=== PATIENT | male | born 1960 | race Caucasian/White ===

== ENCOUNTER 2016-11-27 13:23 | Emergency (ER) | payer OTHER ==
--- NOTE | 2016-11-27 14:22 | UC ---
Dizzy HPI HPI Summary: pt presents with c/o of lightheadedness, dizziness X 1-2 days. pt is a type 2 diabetic who uses insulin. pt reports finger stick last night was in the 50's prior to bed and he adjusted dose of insulin and ate some food. BG improved. Pt also reports that he has had the "stomach bug" for the past 5 days. with frequent loose stools, abdominal pain, flatus, generalized malaise. Additionally, reports that he think he may have food poisoning. Pt ate a restaurant on 11/22/16 with a firend and friend also reported sudden onset of diarrhea, abdominal pain and flatus. However, pt states that friend has improved in terms of loose stools. Pt reports that dizziness and generalized malaise have worsened today and that he can't "seem to get my numbers up" for fingersticks. - History Of Current Complaint Chief Complaint: UCGeneralIllness Stated Complaint: BLOOD SUGAR LOW Time Seen by Provider: 11/27/16 13:35 Hx Obtained From: Patient Onset/Duration: Gradual Onset, Lasting Days Timing: Constant Severity Initially: Mild Severity Currently: Moderate Character: Lightheaded, Dizzy Aggravating Factor(s): Position Change Alleviating Factor(s): Nothing Associated Signs And Symptoms: Positive: Decreased Oral Intake - Risk Factors Cardiac Risk Factors: Diabetes - Allergies/Home Medications Allergies/Adverse Reactions: Allergies Allergy/AdvReac Type Severity Reaction Status Date / Time No Known Allergies Allergy Verified 11/27/16 13:26 Home Medications: Home Medications Desvenlafaxine(NF) [Pristiq(NF)] 1 tab PO QAM 11/27/16 [History Confirmed ] Fenofibrate(NF) [Tricor(NF)] 1 tab PO QPM 11/27/16 [History Confirmed 11/27/16] Gabapentin TAB(NF) [Neurontin 600 mg TAB(NF)] 1 tab PO BID 11/27/16 [History Confirmed 11/27/16] Glimepiride (NF) 2 tab PO BID 11/27/16 [History Confirmed 11/27/16] Insulin GLARGINE(*) [Lantus(*)] 20 units IM QPM 11/27/16 [History Confirmed ] LORazepam TAB(*) [Ativan TAB(*)] 1 tab PO TID 11/27/16 [History Confirmed ] Mirtazapine 1 tab PO QPM 11/27/16 [History Confirmed 11/27/16] Ranitidine TAB (NF) [Zantac TAB (NF)] 2 tab PO QPM 11/27/16 [History Confirmed 11/27/16] metFORMIN* [Glucophage*] 1 tab PO BID 11/27/16 [History Confirmed 11/27/16] PMH/Surg Hx/FS Hx/Imm Hx - Additional Past Medical History Additional PMH: Pt has generalized anxiety and depression. has implated vagus nerve stimulator for depression . States that is not currently "active" Previously Healthy: No - see PMH Endocrine History Of: Reports: Diabetes Denies: Thyroid Disease Cardiovascular History Of: Denies: Cardiac Disorders, Hypertension Respiratory History Of: Denies: COPD, Asthma GI/ History Of: Denies: Ulcer Psychological History Of: Reports: Anxiety, Depression - Surgical History Surgical History: Yes Surgery Procedure, Year, and Place: SKIN CANCER REMOVED 2013 - Family History Known Family History: Positive: Cardiac Disease - FMh of a-fib - Social History Lives: With Family Alcohol Use: None Substance Use Type: None Smoking Status (MU): Never Smoked Tobacco Review of Systems Constitutional: Chills, Fatigue Skin: Negative Eyes: Negative ENT: Negative Respiratory: Negative Cardiovascular: Negative Gastrointestinal: Abdominal Pain, Diarrhea Genitourinary: Negative Motor: Negative Neurovascular: Negative Musculoskeletal: Myalgia Neurological: Negative Psychological: Negative All Other Systems Reviewed And Are Negative: Yes Physical Exam Triage Information Reviewed: Yes Appearance: Ill-Appearing, Other: - diaphoretic Vital Signs: Initial Vital Signs Temp 97.9 F 11/27/16 13:31 Pulse 93 11/27/16 13:31 Resp 20 11/27/16 13:31 BP 150/86 11/27/16 13:31 Pulse Ox 99 11/27/16 13:31 Vital Signs Reviewed: Yes Eye Exam: Normal ENT Exam: Normal Neck exam: Normal Respiratory Exam: Normal Cardiovascular Exam: Normal Abdomen Description: Positive: Other: - large distended, firm, Bowel Sounds: Positive: Present, Hyperactive Musculoskeletal Exam: Normal Neurological Exam: Normal Psychological Exam: Normal Skin Exam: Other - flushed, diaphoretic Dizzy Course/Dx - Differential Dx/Diagnosis Differential Diagnosis/HQI/PQRI: Anxiety, Metabolic Abnormality, Other - gastroenteritis Provider Diagnoses: Hypoglycemia. gastroenteritis. dehydration. Hypokalemia-? - Physician Notifications Discussed Patient Care With: Lou Rubi at [facility] and she accepted the pt for transfer Time Discussed With Above Provider: 14:35 Instructed by Provider To: Transfer - pt agreed to go to [facility] ED for further evaluation, and refused ambulance Discharge - Discharge Plan Condition: Stable Disposition: HOME Patient Education Materials: Diabetic Hypoglycemia (ED), Gastroenteritis (ED) Referrals: No Primary Care Phys,NOPCP [Primary Care Provider] -
[2016-11-27 15:02] VITALS: BP 144/87
== END 2016-11-27 14:40 | disposition left against medical advice (07) ==
LOC: UCEAST 13:23
DX: K52.9 Noninfective gastroenteritis and colitis, unspecified (principal); E86.0 Dehydration; E11.649 Type 2 diabetes mellitus with hypoglycemia without coma; Z79.4 Long term (current) use of insulin; Z79.84 Long term (current) use of oral hypoglycemic drugs; R42 Dizziness and giddiness
CPT/HCPCS: 87328; 87329; 93005